=== PATIENT | male | born 1945 | race Caucasian/White ===

== ENCOUNTER 2016-12-10 11:37 | Emergency (ER) | payer MEDICARE, BC ==
[~2016-12-10 11:37] MED LIST: ASA CHILDREN'S81 MG PO; CIPRO250 MG PO; COZAAR DPS25 MG PO; CRESTOR20 MG PO; HYDROCODONE 5MG/5 MG PO; LOPRESSOR DPS50 MG PO; NEXIUM40 MG PO; NORVASC5 MG PO; PEPCID40 MG PO; PYRIDIUM200 MG PO
--- NOTE | 2016-12-11 15:40 | ER ---
ADMIT: 12/10/2016 RM/LOC: ER [facility] MR#: [id number] [address] [id number] ONOFRE BONNER [address] [place] [address] Emergency Room Report SEX: M AGE: 71 : 1945 DATE: 12/10/2016 ADDENDUM: This is a 71-year-old white male coming in with palpitations. He has had these before, he is on flecainide. CBC, chemistry, and troponin are negative. Creatinine is little borderline at 2. Nothing on his chest x-ray. I spoke with Dr. Pina. We are going to up him from 50 twice a day to 75 twice a day, that is 1/2 tablets. He is to call [facility] in the morning and they will make an appointment. CONDITION ON DISCHARGE: Good. Vasiliy Johns MD/ john JOB #: [id number] CC: Vasiliy Johns MD, Attending Physician Ky Pina MD, Family Physician
[2017-05-15] MEDS ORDERED: TAMBOCOR DPS50 MG PO (13:16)
[2017-05-15] MEDS ORDERED: SYNTHROID88 MCG PO (13:16)
[2017-05-15] MEDS ORDERED: ALLOPURINOL100 MG PO (13:16)
[2017-05-15] MEDS ORDERED: FLEXERIL DPS5 MG PO (13:17)
[2017-05-15] MEDS ORDERED: TYLENOL DPS325 MG PO (13:17)
[2017-05-15] MEDS ORDERED: MAALOX DPS30 ML PO (13:17)
[2017-05-15] MEDS ORDERED: LIDOCAINE PATCH TD (13:18)
== END 2016-12-10 13:20 | disposition home or self-care (01) ==
LOC: ER 11:37
DX: I49.3 Ventricular premature depolarization (principal); R06.02 Shortness of breath; R00.2 Palpitations; Z87.442 Personal history of urinary calculi; Z88.0 Allergy status to penicillin; Z88.2 Allergy status to sulfonamides; Z88.8 Allergy status to other drugs, medicaments and biological substances; Z79.82 Long term (current) use of aspirin; Z79.899 Other long term (current) drug therapy

== ENCOUNTER 2017-06-13 02:55 | Emergency (ER) | payer MEDICARE, BC ==
[~2017-06-13 02:55] MED LIST changes: +ALLOPURINOL100 MG PO; +FLEXERIL DPS5 MG PO; +LIDOCAINE PATCH TD; +MAALOX DPS30 ML PO; +SYNTHROID88 MCG PO; +TAMBOCOR DPS50 MG PO; +TYLENOL DPS325 MG PO
--- NOTE | 2017-06-16 05:18 | ER ---
ADMIT: 06/13/2017 RM/LOC: ER [facility] MR#: [id number] [address] [address] PERLAONOFRE FAUSTIN [address] [place] [address] Emergency Room Report SEX: M AGE: 71 : 1945 DATE: 06/13/2017 ADDENDUM: A 71-year-old male, comes in for high blood pressure. He does take his blood pressure daily and noticed today it is a little bit high. He checked it again this evening and was even higher, so he came in for evaluation. He denies any chest pain or shortness of breath. He has not had any recent illness and denies fevers, chills, nausea, or vomiting. He is currently on 2 medications, losartan and metoprolol for his blood pressure. He has been on amlodipine in the past but has not been on it for quite some time, as his blood pressure had been improved. His blood pressure was 190 systolic when he initially presented. He was given clonidine 0.2 mg p.o., and his blood pressure improved to the 130 systolic. I did check CBC which was unremarkable. Chemistries which showed a slightly elevated creatinine, otherwise unremarkable. He does have a history of renal insufficiency. It is not new for him. Troponin was also normal. EKG was done when he was triaged, and it shows interventricular conduction delay, otherwise unremarkable. The patient feels like he is at his baseline, so he was sent home. Continue his normal blood pressure medications and to call his primary care's office today and see if they want him to restart the amlodipine. He is told to return to the ER for any concerning symptoms. DIAGNOSIS: Hypertension. Dallas Cash MD/ john JOB #: [id number] CC: Dallas Cash MD, Attending Physician Julio Schofield MD, Family Physician
== END 2017-06-13 04:30 | disposition home or self-care (01) ==
LOC: ER 02:55
DX: I10 Essential (primary) hypertension (principal); N18.9 Chronic kidney disease, unspecified; Z88.0 Allergy status to penicillin; Z88.1 Allergy status to other antibiotic agents; Z88.2 Allergy status to sulfonamides; Z88.8 Allergy status to other drugs, medicaments and biological substances; Z79.82 Long term (current) use of aspirin; Z79.899 Other long term (current) drug therapy